=== PATIENT | female | born 1970 | race Caucasian/White ===

== ENCOUNTER → 2023-11-06 16:58 | Outpatient (REF) | payer BC, SELFPAY | LOC: WDC 16:58 | PROVIDERS: ATTENDING PHYSICIAN Nurse Practitioner Family; FAMILY PHYSICIAN Nurse Practitioner Family | DX: Z12.31 Encounter for screening mammogram for malignant neoplasm of breast (principal) | CPT/HCPCS: 77063; 77067 ==

== ENCOUNTER → 2024-06-05 08:27 | Outpatient (REF) | payer BC, SELFPAY | LOC: MRI 3T 08:27 | PROVIDERS: ATTENDING PHYSICIAN Nurse Practitioner; FAMILY PHYSICIAN Nurse Practitioner Family | DX: K86.2 Cyst of pancreas (principal) | CPT/HCPCS: 74183; A9575 ==

== ENCOUNTER → 2024-12-16 11:30 | Outpatient (REF) | payer BC, SELFPAY | LOC: WDC 11:30 | PROVIDERS: ATTENDING PHYSICIAN Obstetrics & Gynecology Gynecology; FAMILY PHYSICIAN Family Medicine | DX: Z12.31 Encounter for screening mammogram for malignant neoplasm of breast (principal) | CPT/HCPCS: 77063; 77067 ==